=== PATIENT | female | born 1975 | race Caucasian/White ===

== ENCOUNTER 2021-01-27 11:29 | Outpatient (CLI) | payer OTHER, SELFPAY ==
--- NOTE | ~2021-01-27 | XR_ITS ---
EXAMINATION: XR chest 2V EXAM DATE: 01/27/2021 11:46 INDICATION: COVID-19, increasing shortness of breath, high fevers. TECHNIQUE: Frontal and lateral projections of the chest obtained and reviewed. Comparison is made to prior examination from 08/01/2018. FINDINGS: There is ill-defined right midlung zone airspace disease which could be acute infectious pr ocess, could be COVID pneumonia. Other etiologies infectious also possible radiographically, and foll ow-up x-ray is indicated to resolution. No left-sided airspace disease. There is no pneumothorax susp ected. There are no pleural effusions. Cardiomediastinal silhouette is normal. There are no osseous a bnormalities identified. IMPRESSION: Ill-defined right midlung zone airspace disease probably acute infectious process. Recom mend follow-up x-ray to resolution. Reviewed, dictated and finalized at location A. IMPRESSION: Ill-defined right midlung zone airspace disease probably acute inf ectious process. Recommend follow-up x-ray to resolution.
== END 2021-01-27 11:30 | disposition home or self-care (01) ==
PROVIDERS: PCP Physician Assistant; Visit Provider Physician Assistant
DX: U07.1 COVID-19 (principal)
CPT/HCPCS: 71046